=== PATIENT | female | born 1980 | race African-American/Black ===

== ENCOUNTER 2016-04-28 18:16 | Emergency (ER) | payer SELFPAY ==
[~2016-04-28 18:16] MED LIST: CHLO.12%30 SWISH-SPIT; CLIN150 PO; CLIN1CAP5 PO; DICL75 PO; IBUP800T23 PO; LISI40TA PO; MMW SWISH-SPIT; PENI250S2 PO
[2016-04-28 18:18] VITALS: BP 153/92; PULSE 80; RESP 20; TEMP 98.1; O2SAT 99
[2016-04-28] MEDS ORDERED: ONDANSETRON HCL 4 MG/2 ML VIAL IV ONE (22:45)
[2016-04-28] MEDS ORDERED: SODIUM CHLOR 0.9% 1000 ML INJ 1,000 ML IV ONE (22:45)
[2016-04-28] MEDS ORDERED: MORPHINE SULFATE 4 MG/ML INJ IV PUSH ONE (22:45)
[2016-04-28] MEDS ORDERED: LISI-515 PO (22:50)
[2016-04-28] MEDS ORDERED: ZOFR4TAB3 SL (22:50)
--- NOTE | 2016-04-28 22:50 | PD ---
HPI Chief Complaint: GI Complaint Time Seen by Provider: 22:36 Travel History International Travel<30 days: No Contact w/Intl Traveler<30days: No Traveled to known affect area: No History of Present Illness HPI The patient is a 35 year old female who presents to the [facility] emergency department with a history of lower abdominal cramping below the umbilicus and in bilateral lower quadrants of the abdomen that began this morning. She reports that it has been associated with nausea, vomiting, and diarrhea. She reports that she's had vomiting approximately 4-5 times, and diarrhea 6. She denies having any blood in her stool or black or tarry stools. She denies having any mucus in her stool. She reports that last week someone did come into work sick. She denies being on any recent antibiotics. She denies any foreign travel. She denies having any known fever. She denies having dysuria, hematuria, urinary urgency or frequency. Her last menstrual cycle was April 18. She denies any possibility of being . The patient denies any cough, congestion, neck pain, chest pain, shortness of breath, or neurologic symptoms. [facility] Past Medical History Narrative Medical The patient's past medical history is significant for hypertension. She denies taking any medication currently and she reports that she does not have insurance. The patient has degenerative disc disease of the low back. Cardiovascular Problems: Yes (HTN-NOT TAKING MEDS) Diminished Hearing: No Hepatitis: No Hypertension: Yes Medical other: Yes (ARTHRITIS LOW SPINE) Respiratory: No Immunizations Current: Yes Tetanus Vaccination: < 5 Years Influenza Vaccination: No ?: Not LMP: 04/18/16 : 9 Para: 8 Miscarriage: 1 Past Surgical History Narrative Surgical The patient's past surgical history is significant for right wrist tendon repair. Pacemaker: No Other Surgery: Yes (RIGHT WRIST LACERATION REPAIR) Social History Alcohol Use: No Tobacco Use: Yes (1/2 pack a day) Substance Use: No Allergies-Medications (Allergen,Severity, Reaction): Coded Allergies: No Known Allergies (Verified , 04/28/16) Reported Meds & Prescriptions Reported Meds & Active Scripts Active Zofran Odt (Ondansetron Odt) 4 Mg Tab 4 Mg SL Q6HR PRN Lisinopril 20 Mg Tab 20 Mg PO DAILY Review of Systems Except as stated in HPI: all other systems reviewed are Neg General / Constitutional: No: Fever Eyes: No: Visual changes HENT: No: Headaches Cardiovascular: No: Chest Pain or Discomfort Respiratory: No: Shortness of Breath Gastrointestinal: Positive: Nausea, Vomiting, Diarrhea, Abdominal Pain, Changes in Bowel Habits, Loss of Appetite, No: Hematemesis, Hematochezia, Indigestion Genitourinary: No: Dysuria Musculoskeletal: No: Pain Skin: No Rash Neurologic: No: Weakness Psychiatric: No: Depression Endocrine: No: Polydipsia Hematologic/Lymphatic: No: Easy Bruising Physical Exam Narrative General: The patient is a well-developed well-nourished female in no acute distress. Head and Neck exam: Head is normocephalic atraumatic. Eyes: EOMI, pupils are equal round and reactive to light. Nose: Midline septum with pink mucous membranes Mouth: Dentition unremarkable. Moist mucus membranes. Posterior oropharynx is not erythematous. No tonsillar hypertrophy. Uvula midline. Airway patent. Neck: No palpable lymphadenopathy. No nuchal rigidity. No thyromegaly. Cardiovascular: Regular rate and rhythm without murmurs, gallops, or rubs. Lungs: Clear to auscultation bilaterally. No wheezes, rhonchi, or rales. Abdomen: Soft, with discomfort on deep palpation of the lateral lower quadrants of the abdomen and suprapubic area. No guarding, rebound, or rigidity. No tenderness on palpation of McBurney's point. Normal bowel sounds are audible. Extremities: No clubbing, cyanosis, or edema. No calf tenderness on palpation. Back: No spinous process tenderness to palpation. Right-sided CVA tenderness on palpation. Neurologic Exam: Grossly nonfocal. Skin Exam: No rash noted. Intact skin that is warm and dry. Data Data Last Documented VS Vital Signs Date Time Temp Pulse Resp B/P Pulse Ox O2 Delivery O2 Flow Rate FiO2 04/28/16 22:34 16 04/28/16 18:18 98.1 80 153/92 99 Room Air Orders Complete Blood Count With Diff (04/28/16 22:36) Comprehensive Metabolic Panel (04/28/16 22:36) C-Reactive Protein (Crp) (04/28/16 22:36) Lipase (04/28/16 22:36) Urinalysis - C+S If Indicated (04/28/16 22:36) Iv Access Insert/Monitor (04/28/16 22:36) Ecg Monitoring (04/28/16 22:36) Oximetry (04/28/16 22:36) Ed Urine Pregnancytest Poc (04/28/16 22:36) Sodium Chlor 0.9% 1000 Ml Inj (Ns 1000 M (04/28/16 22:45) Ondansetron Inj (Zofran Inj) (04/28/16 22:45) Morphine Inj (Morphine Inj) (04/28/16 22:45) Blood Glucose (04/28/16 23:50) Oral Rehydration (04/28/16 23:50) Sodium Chlorid 0.9% 500 Ml Inj (Ns 500 M (04/29/16 00:00) Labs Laboratory Tests Test 04/28/16 04/28/16 08:20 22:42 Sodium Level 139 MEQ/L Potassium Level 4.0 MEQ/L Chloride Level 106 MEQ/L Carbon Dioxide Level 25.4 MEQ/L Anion Gap 8 MEQ/L Blood Urea Nitrogen 12 MG/DL Creatinine 0.77 MG/DL Estimat Glomerular Filtration 102 ML/MIN Rate Random Glucose 69 MG/DL Calcium Level 8.9 MG/DL Total Bilirubin 0.4 MG/DL Aspartate Amino Transf 13 U/L (AST/SGOT) Alanine Aminotransferase 19 U/L (ALT/SGPT) Alkaline Phosphatase 95 U/L C-Reactive Protein LESS THAN 0.29 MG/DL Total Protein 7.1 GM/DL Albumin 4.2 GM/DL Lipase 101 U/L White Blood Count 6.6 TH/MM3 Red Blood Count 4.63 MIL/MM3 Hemoglobin 14.7 GM/DL Hematocrit 43.2 % Mean Corpuscular Volume 93.3 FL Mean Corpuscular Hemoglobin 31.7 PG Mean Corpuscular Hemoglobin 34.0 % Concent Red Cell Distribution Width 14.1 % Platelet Count 276 TH/MM3 Mean Platelet Volume 8.5 FL Neutrophils (%) (Auto) 49.4 % Lymphocytes (%) (Auto) 39.8 % Monocytes (%) (Auto) 7.8 % Eosinophils (%) (Auto) 2.3 % Basophils (%) (Auto) 0.7 % Neutrophils # (Auto) 3.3 TH/MM3 Lymphocytes # (Auto) 2.6 TH/MM3 Monocytes # (Auto) 0.5 TH/MM3 Eosinophils # (Auto) 0.2 TH/MM3 Basophils # (Auto) 0.0 TH/MM3 CBC Comment DIFF FINAL Differential Comment Urine Color YELLOW Urine Turbidity HAZY Urine pH 6.5 Urine Specific [place] 1.019 Urine Protein NEG mg/dL Urine Glucose (UA) NEG mg/dL Urine Ketones NEG mg/dL Urine Occult Blood NEG Urine Nitrite NEG Urine Bilirubin NEG Urine Urobilinogen 2.0 MG/DL Urine Leukocyte Esterase NEG Urine RBC LESS THAN 1 /hpf Urine WBC LESS THAN 1 /hpf Urine Squamous Epithelial 3 /hpf Cells Urine Mucus FEW /lpf Microscopic Urinalysis Comment CULT NOT INDICATED MDM Medical Decision Making Medical Screen Exam Complete: Yes Emergency Medical Condition: Yes Medical Record Reviewed: Yes Differential Diagnosis Viral versus bacterial gastroenteritis, versus dehydration, versus electrolyte derangements, versus pyelonephritis, versus musculoskeletal strain, versus cystitis, versus Narrative Course During the course of the patients emergency department visit, the patients history, examination, and differential diagnosis were reviewed with the patient. The patient had IV access obtained and blood work sent for analysis. The patient states on a cream maker with oximetry and blood pressure monitoring. The patient was provided normal saline 1 L IV fluid bolus, Zofran 4 mg IV. The patient was started on oral rehydration therapy. Bedside test was negative. The patients laboratory studies were reviewed and remarkable for CBC is within normal limits. CMP is remarkable for a glucose of 69, AST 13, lipase 101, C- reactive protein is unremarkable. Urinalysis is unremarkable. The patient will have an Accu-Chek repeated. The patient will be started on oral rehydration therapy. The patient's symptoms are most consistent with a viral gastroenteritis. The patient will be discharged home with a prescription for Zofran and instructed to push fluids with an electrolyte rich solution such as Gatorade or Pedialyte. The patient was also given a prescription for lisinopril as she reports that she has a history of high blood pressure and has not been able to get medication. The patient was instructed to follow-up with the [facility] and patient assistance for primary care. The patient is resting comfortably and feels better, is alert and in no distress. The patients results and examination findings were discussed with the patient. The repeat examination is unremarkable and benign. The history, exam, diagnostic testing, and current condition do not suggest any significant pathology to warrant further testing, continued ED treatment, admission, or surgical evaluation at this point. The vital signs have been stable. The patient does not have uncontrollable pain, intractable vomiting, or other significant symptoms. The patient's condition is stable and appropriate for discharge. The patient will pursue further outpatient evaluation with a primary care physician or other designated or consulting physician as indicated in the discharge instructions. The patient expressed understanding and was agreeable with this plan. Diagnosis Primary Impression: Nausea vomiting and diarrhea Additional Impression: Hypertension Qualified Code: I10 - Essential hypertension Referrals: [facility] Patient Assistance [facility] Patient Instructions: Acute Diarrhea (ED), Acute Nausea and Vomiting (ED), Chronic Hypertension (ED), General Instructions Med/Other Pt SpecificInfo: Prescription(s) given Scripts Ondansetron Odt (Zofran Odt)4 Mg Tab4 Mg SL Q6HR PRN (Nausea/Vomiting) #7 TAB Ref 0 Prov:Qi Biswas MD 04/28/16 Lisinopril 20 Mg Tab20 Mg PO DAILY #30 TAB Ref 0 Prov:Qi Biswas MD 04/28/16 Disposition: 01 DISCHARGE HOME Condition: Stable Qi Biswas MD Apr 28, 2016 22:50
[2016-04-28 22:55] LABS: AUTOMATED NEUTROPHIL # 3.3 TH/MM3 (1.8-7.7); BASOPHIL % 0.7 % (0.0-2.0); EOSINOPHIL # 0.2 TH/MM3 (0-0.4); EOSINOPHIL % 2.3 % (0.0-4.0); HEMATOCRIT 43.2 % (35.0-46.0); HEMO FLAGS DIFF FINAL; LYMPH % 39.8 % (9.0-44.0); LYMPHOCYTE # 2.6 TH/MM3 (1.0-4.8); MEAN CELL VOLUME 93.3 FL (80.0-100.0); MEAN CORPUSCULAR HEMOGLOBIN 31.7 PG (27.0-34.0); MONO % 7.8 % (0.0-8.0); NEUT % 49.4 % (16.0-70.0); PLATELET COUNT 276 TH/MM3 (150-450); RED BLOOD COUNT 4.63 MIL/MM3 (4.00-5.30); RED CELL DISTRIBUTION WIDTH 14.1 % (11.6-17.2); WHITE BLOOD COUNT 6.6 TH/MM3 (4.0-11.0)
[2016-04-28 23:09] LABS: BLOOD, URINE NEG (NEG); COMMENT (UR) CULT NOT INDICATED; CULTURE IF INDICATED CULT NOT INDICATED; GLUCOSE,URINE NEG (NEG); KETONE, URINE NEG (NEG); MUCUS URINE FEW /lpf (OCC); NITRITE,URINE NEG (NEG); PH, URINE 6.5 (5.0-8.5); SQUAMOUS EPITHELIAL CELL URINE 3 /hpf (0-5); URINE COLOR YELLOW (YELLW/STRAW)
[2016-04-28 23:16] LABS: ALT (GPT) 19 U/L (10-53); AST (GOT) 13 U/L (15-37); BICARBONATE 25.4 MEQ/L (21.0-32.0); BLOOD UREA NITROGEN 12 MG/DL (7-18); CHLORIDE 106 MEQ/L (98-107); GLOMERULAR FILTRATION RATE 102 ML/MIN (>89); SODIUM (NA) 139 MEQ/L (136-145)
[2016-04-28 23:17] LABS: ANION GAP 8 MEQ/L (5-15)
[2016-04-28 23:19] LABS: ALKALINE PHOSPHATASE 95 U/L (45-117); TOTAL BILIRUBIN ADULT 0.4 MG/DL (0.2-1.0)
[2016-04-29] MEDS ORDERED: SODIUM CHLORID 0.9% 500 ML INJ 500 ML IV ONE
[2016-04-29 00:31] VITALS: RESP 18; O2SAT 100
== END 2016-04-29 01:52 | disposition home or self-care (01) ==
LOC: NEPC 18:16
DX: R11.2 Nausea with vomiting, unspecified (principal); R19.7 Diarrhea, unspecified; I10 Essential (primary) hypertension; F17.210 Nicotine dependence, cigarettes, uncomplicated
CPT/HCPCS: 80053; 81001; 83690; 84703; 85025; 86140; 96374; 96375; 99284; J2270; J2405; J7030; J7040

== ENCOUNTER 2016-08-02 15:12 | Emergency (ER) | payer SELFPAY ==
[~2016-08-02] VITALS: Ht 165.1 cm; Wt 80.0 kg
[~2016-08-02 15:12] MED LIST changes: -CHLO.12%30 SWISH-SPIT; -CLIN150 PO; -CLIN1CAP5 PO; -DICL75 PO; -IBUP800T23 PO; +LISI-515 PO; -LISI40TA PO; -MMW SWISH-SPIT; -PENI250S2 PO; +ZOFR4TAB3 SL
[2016-08-02 15:14] VITALS: BP 133/85; PULSE 84; RESP 16; TEMP 98.1; O2SAT 98
--- NOTE | 2016-08-02 15:27 | PD ---
HPI . chest pain and high blood pressure Chief Complaint: Chest Pain Time Seen by Provider: 15:21 Travel History International Travel<30 days: No Contact w/Intl Traveler<30days: No Traveled to known affect area: No History of Present Illness HPI 35-year-old female with history of high blood pressure here with complaints of chest pressure that started last night and has been constant ever since. Patient is located in the substernal area without any further radiation. She rates the pain as mild-moderate. She tells me that her blood pressure has been high and she was given lisinopril 20 mg here in the emergency department, but that she would need lisinopril 40 mg. She also reports some nausea, but denies any diaphoresis or shortness of breath. She was last seen here in April 2016 and given lisinopril, and told to follow-up with her primary care provider/ [facility] or Patient's assistance. She tells me she does not have a primary care provider and uses the emergency room for her medical needs. She has no other complaints. PFSH Past Medical History Cardiovascular Problems: Yes (HTN-NOT TAKING MEDS) Diminished Hearing: No Hepatitis: No Hypertension: Yes Respiratory: No Immunizations Current: Yes ?: Not LMP: 07/26/16 : 9 Para: 8 Miscarriage: 1 Past Surgical History Pacemaker: No Other Surgery: Yes (RIGHT WRIST LACERATION REPAIR) Social History Alcohol Use: No Tobacco Use: Yes (1/2 pack a day) Substance Use: No Allergies-Medications (Allergen,Severity, Reaction): Coded Allergies: No Known Allergies (Verified , 08/02/16) Reported Meds & Prescriptions Reported Meds & Active Scripts Active Zofran Odt (Ondansetron Odt) 4 Mg Tab 4 Mg SL Q8HR PRN Lisinopril 20 Mg Tab 20 Mg PO DAILY Lisinopril 20 Mg Tab 20 Mg PO DAILY Review of Systems General / Constitutional: No: Fever Eyes: No: Visual changes HENT: No: Headaches Cardiovascular: Positive: Chest Pain or Discomfort Respiratory: No: Shortness of Breath Gastrointestinal: Positive: Nausea, No: Abdominal Pain Genitourinary: No: Dysuria Musculoskeletal: No: Pain Skin: No Rash Neurologic: No: Weakness Psychiatric: No: Depression Endocrine: No: Polydipsia Hematologic/Lymphatic: No: Easy Bruising Physical Exam Narrative GENERAL: AAO x 3, no acute distress, Well-nourished, well-developed patient. SKIN: Warm and dry. No visible rashes or bruising. HEAD: Normocephalic and atraumatic. EYES: No scleral icterus. No injection or drainage. EOM intact, PERRLA ENT: No nasal drainage noted. Mucous membranes pink. Airway patent. Moist mucous membrane. NECK: Supple, trachea midline. No JVD. No lymphadenopathy. CARDIOVASCULAR: Regular rate and rhythm without murmurs, gallops, or rubs. Reproducible pain in the sternum. RESPIRATORY: Breath sounds equal bilaterally. No accessory muscle use. No rhonchi or rales. GASTROINTESTINAL: Abdomen soft, non-tender, nondistended. EXTREMITIES: No cyanosis or edema. BACK: Nontender without obvious deformity. No CVA tenderness. 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 Data Data Last Documented VS Vital Signs Date Time Temp Pulse Resp B/P Pulse Ox O2 Delivery O2 Flow Rate FiO2 08/02/16 15:29 79 18 132/87 98 Room Air 134/91 08/02/16 15:14 98.1 Orders Electrocardiogram (08/02/16 15:27) Basic Metabolic Panel (Bmp) (08/02/16 15:27) Ckmb (Isoenzyme) Profile (08/02/16 15:27) Complete Blood Count With Diff (08/02/16 15:27) Magnesium (Mg) (08/02/16 15:27) Prothrombin Time / Inr (Pt) (08/02/16 15:27) Act Partial Throm Time (Ptt) (08/02/16 15:27) Troponin I (08/02/16 15:27) Chest, Single Ap (08/02/16 15:27) Ecg Monitoring (08/02/16 15:27) Bilateral Bp Monitoring (08/02/16 15:27) Iv Access Insert/Monitor (08/02/16 15:27) Oximetry (08/02/16 15:27) Oxygen Administration (08/02/16 15:27) Sodium Chloride 0.9% Flush (Ns Flush) (08/02/16 15:30) Ed Urine Pregnancytest Poc (08/02/16 15:27) Ondansetron Inj (Zofran Inj) (08/02/16 16:45) CKMB (08/02/16 15:40) CKMB% (08/02/16 15:40) Labs Laboratory Tests Test 08/02/16 15:40 White Blood Count 5.7 TH/MM3 Red Blood Count 4.32 MIL/MM3 Hemoglobin 13.9 GM/DL Hematocrit 40.5 % Mean Corpuscular Volume 93.8 FL Mean Corpuscular Hemoglobin 32.2 PG Mean Corpuscular Hemoglobin 34.3 % Concent Red Cell Distribution Width 14.0 % Platelet Count 250 TH/MM3 Mean Platelet Volume 8.3 FL Neutrophils (%) (Auto) 51.0 % Lymphocytes (%) (Auto) 35.4 % Monocytes (%) (Auto) 9.8 % Eosinophils (%) (Auto) 3.3 % Basophils (%) (Auto) 0.5 % Neutrophils # (Auto) 2.9 TH/MM3 Lymphocytes # (Auto) 2.0 TH/MM3 Monocytes # (Auto) 0.6 TH/MM3 Eosinophils # (Auto) 0.2 TH/MM3 Basophils # (Auto) 0.0 TH/MM3 CBC Comment DIFF FINAL Differential Comment Prothrombin Time 10.4 SEC Prothromb Time International 0.9 RATIO Ratio Activated Partial 25.2 SEC Thromboplast Time Sodium Level 140 MEQ/L Potassium Level 4.1 MEQ/L Chloride Level 109 MEQ/L Carbon Dioxide Level 22.4 MEQ/L Anion Gap 9 MEQ/L Blood Urea Nitrogen 16 MG/DL Creatinine 0.77 MG/DL Estimat Glomerular Filtration 102 ML/MIN Rate Random Glucose 77 MG/DL Calcium Level 8.6 MG/DL Magnesium Level 2.2 MG/DL Total Creatine Kinase 184 U/L Creatine Kinase MB 1.2 NG/ML Troponin I LESS THAN 0.02 NG/ML MDM Medical Decision Making Medical Screen Exam Complete: Yes Emergency Medical Condition: Yes Medical Record Reviewed: Yes Differential Diagnosis Hypertension, angina, less likely ACS, atypical chest pain, anxiety Narrative Course 35-year-old female here with complaints of chest pain that started yesterday while at work. The pain has been constant ever since. IV access was obtained, labs and chest x-ray have been ordered. EKG was unremarkable. She was given zofran for her nausea. Last Impressions Chest X-Ray 08/02/16 0757 Signed Impressions: Service Date/Time: Thursday, August 02, 2016 15:48 - CONCLUSION: No acute disease. Demian Cody MD Chest x-ray unremarkable. Laboratory Tests Test 08/02/16 15:40 White Blood Count 5.7 TH/MM3 Red Blood Count 4.32 MIL/MM3 Hemoglobin 13.9 GM/DL Hematocrit 40.5 % Mean Corpuscular Volume 93.8 FL Mean Corpuscular Hemoglobin 32.2 PG Mean Corpuscular Hemoglobin 34.3 % Concent Red Cell Distribution Width 14.0 % Platelet Count 250 TH/MM3 Mean Platelet Volume 8.3 FL Neutrophils (%) (Auto) 51.0 % Lymphocytes (%) (Auto) 35.4 % Monocytes (%) (Auto) 9.8 % Eosinophils (%) (Auto) 3.3 % Basophils (%) (Auto) 0.5 % Neutrophils # (Auto) 2.9 TH/MM3 Lymphocytes # (Auto) 2.0 TH/MM3 Monocytes # (Auto) 0.6 TH/MM3 Eosinophils # (Auto) 0.2 TH/MM3 Basophils # (Auto) 0.0 TH/MM3 CBC Comment DIFF FINAL Differential Comment Prothrombin Time 10.4 SEC Prothromb Time International 0.9 RATIO Ratio Activated Partial 25.2 SEC Thromboplast Time Sodium Level 140 MEQ/L Potassium Level 4.1 MEQ/L Chloride Level 109 MEQ/L Carbon Dioxide Level 22.4 MEQ/L Anion Gap 9 MEQ/L Blood Urea Nitrogen 16 MG/DL Creatinine 0.77 MG/DL Estimat Glomerular Filtration 102 ML/MIN Rate Random Glucose 77 MG/DL Calcium Level 8.6 MG/DL Magnesium Level 2.2 MG/DL Total Creatine Kinase 184 U/L Creatine Kinase MB 1.2 NG/ML Troponin I LESS THAN 0.02 NG/ML Labs reviewed and are fairly unremarkable. I have discussed all the normal result findings with the patient and explained to her that I do not believe she is having any acute coronary syndrome. Patient is in agreement. Her symptoms have improved with the zofran and she is feeling better. I provide her with 15 additional days worth of lisinopril and explained to her that she will need to establish without an outpatient primary care provider for further refills and treatment of her hypertension. I've also provide her with some Zofran for nausea. Patient verbalized understanding of instructions, questions were answered, and thanked me for their care. I advised them if their condition worsens, please return to the nearest emergency room for further care. Diagnosis Primary Impression: Atypical chest pain Patient Instructions: General Instructions Departure Forms: Tests/Procedures, Work Release Enter return to work date: Aug 03, 2016 Additional Instructions: Please return to emergency department if your symptoms return or worsen. Follow up with your primary care provider. Take medications as prescribed. Try to establish with a primary care provider for further medication refills and care regarding your blood pressure. Med/Other Pt SpecificInfo: Prescription(s) given Scripts Ondansetron Odt (Zofran Odt)4 Mg Tab4 Mg SL Q8HR PRN (Nausea/Vomiting) #15 TAB Ref 0 Prov:Silvana Sloan DO 08/02/16 Lisinopril 20 Mg Tab20 Mg PO DAILY #15 TAB Ref 0 Prov:Silvana Sloan DO 08/02/16 Disposition: 01 DISCHARGE HOME Condition: Stable Rafaela Calvin Aug 02, 2016 15:27
[2016-08-02 15:29] VITALS: BP_SYST 132; BP_SYST 134; BP_DIAS 87; BP_DIAS 91; PULSE 79; RESP 18; O2SAT 98
[2016-08-02] MEDS ORDERED: SODIUM CHLORIDE 0.9% FLUSH 10 ML FLUSH IVF PRN (15:30)
[2016-08-02 16:09] LABS: AUTOMATED NEUTROPHIL # 2.9 TH/MM3 (1.8-7.7); BASOPHIL % 0.5 % (0.0-2.0); EOSINOPHIL # 0.2 TH/MM3 (0-0.4); EOSINOPHIL % 3.3 % (0.0-4.0); HEMATOCRIT 40.5 % (35.0-46.0); HEMO FLAGS DIFF FINAL; LYMPH % 35.4 % (9.0-44.0); MEAN CELL VOLUME 93.8 FL (80.0-100.0); MEAN CORPUSCULAR HEMOGLOBIN 32.2 PG (27.0-34.0); MEAN CORPUSCULAR HGB CONC 34.3 % (32.0-36.0); MONO % 9.8 % (0.0-8.0); PLATELET COUNT 250 TH/MM3 (150-450); RED BLOOD COUNT 4.32 MIL/MM3 (4.00-5.30); WHITE BLOOD COUNT 5.7 TH/MM3 (4.0-11.0)
[2016-08-02 16:18] LABS: APTT (PATIENT) 25.2 SEC (24.3-30.1); INTERNATIONAL NORMALIZED RATIO 0.9 RATIO; PROTHROMBIN TIME - PATIENT 10.4 SEC (9.8-11.6)
--- NOTE | 2016-08-02 16:20 | RADRPT ---
EXAM DATE/TIME: 08/02/2016 15:48 [facility] COMPARISON: No previous studies available for comparison. INDICATIONS : Chest pain. MEDICAL HISTORY : None. SURGICAL HISTORY : None. ENCOUNTER: Initial ACUITY: 1 day PAIN SCORE: 5/10 LOCATION: Left chest FINDINGS: A single view of the chest demonstrates the lungs to be symmetrically aerated without evidence of mas s, infiltrate or effusion. The cardiomediastinal contours are unremarkable. Osseous structures are intact. CONCLUSION: No acute disease. Demian Cody MD on August 02, 2016 at 16:17 Board Certified Radiologist. This report was verified electronically.
[2016-08-02 16:35] LABS: ANION GAP 9 MEQ/L (5-15); BICARBONATE 22.4 MEQ/L (21.0-32.0); BLOOD UREA NITROGEN 16 MG/DL (7-18); CHLORIDE 109 MEQ/L (98-107); GLOMERULAR FILTRATION RATE 102 ML/MIN (>89); MAGNESIUM 2.2 MG/DL (1.5-2.5); POTASSIUM 4.1 MEQ/L (3.5-5.1); SODIUM (NA) 140 MEQ/L (136-145)
[2016-08-02 16:39] LABS: CREATINE KINASE 184 U/L (26-192)
[2016-08-02] MEDS ORDERED: LISI-515 PO (16:43)
[2016-08-02] MEDS ORDERED: ZOFR4TAB3 SL (16:43)
[2016-08-02] MEDS ORDERED: ONDANSETRON HCL 4 MG/2 ML VIAL IV PUSH ONE (16:45)
[2016-08-02 16:51] LABS: CKMB 1.2 NG/ML (0.5-3.6)
[2016-08-02 17:33] VITALS: BP 134/91
--- NOTE | 2016-08-03 11:46 | EKG ---
Date Performed: 08/02/2016 Time Performed: 15:35:03 PTAGE: 35 years EKG: Sinus rhythm NORMAL ECG NO PREVIOUS TRACING DOCTOR: Reuben Lees Interpretating Date/Time 08/03/2016 11:45:10
== END 2016-08-02 17:46 | disposition home or self-care (01) ==
LOC: NEPC 15:12
DX: R07.89 Other chest pain (principal); R11.0 Nausea; I10 Essential (primary) hypertension; F17.200 Nicotine dependence, unspecified, uncomplicated; Z79.899 Other long term (current) drug therapy
CPT/HCPCS: 71010; 80048; 82550; 82552; 83735; 84484; 84703; 85025; 85610; 85730; 93005; 96374; 99285; J2405

== ENCOUNTER 2016-09-16 03:35 | Emergency (ER) | payer SELFPAY ==
[~2016-09-16] VITALS: Ht 165.1 cm; Wt 90.0 kg
[2016-09-16 03:37] VITALS: BP 157/89; PULSE 106; RESP 18; TEMP 98.8; O2SAT 96
[2016-09-16 04:17] VITALS: BP 158/88; PULSE 105; RESP 20; O2SAT 98
--- NOTE | 2016-09-16 04:45 | PD ---
HPI Chief Complaint: Abdominal Pain Time Seen by Provider: 04:12 Travel History International Travel<30 days: No Contact w/Intl Traveler<30days: No Traveled to known affect area: No History of Present Illness HPI The patient is a 36 year old female who presents to the [facility] emergency department with a history of abdominal pain that began yesterday. It involves the entire abdomen. It is constant. It is a stabbing and aching sensation. She has nausea without vomiting associated with this. Her last bowel movement was today. The pain is worse at the bottom of her abdomen. She denies ever having a pain like this previously. On review of systems, she denies any recent fevers, cough, congestion, neck pain, chest pain, shortness of breath, urinary symptoms, or neurologic symptoms. LMP: She is currently at the end of her cycle. [facility] Past Medical History Narrative Medical The Patient's past medical history is significant for hypertension, degenerative disc disease and chronic back pain, Cardiovascular Problems: Yes (HTN-NOT TAKING MEDS) Diminished Hearing: No Hepatitis: No Hypertension: Yes Respiratory: No Immunizations Current: Yes Tetanus Vaccination: < 5 Years Influenza Vaccination: No ?: Not LMP: NOW : 9 Para: 8 Miscarriage: 1 Past Surgical History Narrative Surgical The patient's past surgical history is significant for wrist sx on the right. Pacemaker: No Other Surgery: Yes (RIGHT WRIST LACERATION REPAIR) Social History Alcohol Use: No Tobacco Use: Yes (1/2 pack a day) Substance Use: No Allergies-Medications (Allergen,Severity, Reaction): Coded Allergies: No Known Allergies (Verified , 09/16/16) Reported Meds & Prescriptions Reported Meds & Active Scripts Active No Active Prescriptions or Reported Medications Review of Systems Except as stated in HPI: all other systems reviewed are Neg General / Constitutional: No: Fever Eyes: No: Visual changes HENT: No: Headaches Cardiovascular: No: Chest Pain or Discomfort Respiratory: No: Shortness of Breath Gastrointestinal: Positive: Nausea, Abdominal Pain, No: Vomiting, Diarrhea Genitourinary: No: Dysuria Musculoskeletal: No: Pain Skin: No Rash Neurologic: No: Weakness Psychiatric: No: Depression Endocrine: No: Polydipsia Hematologic/Lymphatic: No: Easy Bruising Physical Exam Narrative General: The patient is a well-developed well-nourished female in no acute distress. Head and Neck exam: Head is normocephalic atraumatic. Eyes: EOMI, pupils are equal round and reactive to light. Nose: Midline septum with pink mucous membranes Mouth: Dentition unremarkable. Moist mucus membranes. Posterior oropharynx is not erythematous. No tonsillar hypertrophy. Uvula midline. Airway patent. Neck: No palpable lymphadenopathy. No nuchal rigidity. No thyromegaly. Cardiovascular: Regular rate and rhythm without murmurs, gallops, or rubs. Lungs: Clear to auscultation bilaterally. No wheezes, rhonchi, or rales. Abdomen: Soft, with with reported pain on palpation of all quadrants of the abdomen. Normal bowel sounds are audible. No guarding, rebound, or rigidity. Negative Shevlin sign. No tenderness on palpation of McBurney's point Extremities: No clubbing, cyanosis, or edema. 2+ pulses in all 4 extremities. Back: No spinous process tenderness to palpation. No CVA tenderness on palpation. Neurologic Exam: Grossly nonfocal. Skin Exam: No rash noted. Intact skin that is warm and dry. A well-developed well-nourished female in no acute distress. Data Data Last Documented VS Vital Signs Date Time Temp Pulse Resp B/P Pulse Ox O2 Delivery O2 Flow Rate FiO2 09/16/16 06:06 104 20 128/75 100 Room Air 09/16/16 03:37 98.8 Orders Complete Blood Count With Diff (09/16/16 04:38) Comprehensive Metabolic Panel (09/16/16 04:38) C-Reactive Protein (Crp) (09/16/16 04:38) Lipase (09/16/16 04:38) Urinalysis - C+S If Indicated (09/16/16 04:38) Westergren Sedimentation Rate (09/16/16 04:38) Iv Access Insert/Monitor (09/16/16 04:38) Ecg Monitoring (09/16/16 04:38) Oximetry (09/16/16 04:38) Ed Urine Pregnancytest Poc (09/16/16 04:38) Sodium Chlorid 0.9% 500 Ml Inj (Ns 500 M (09/16/16 05:15) Ketorolac Inj (Toradol Inj) (09/16/16 05:15) Ondansetron Inj (Zofran Inj) (09/16/16 05:15) Ct Abd/Pel W Iv Contrast(Rout) (09/16/16 05:56) Morphine Inj (Morphine Inj) (09/16/16 06:00) Iohexol 350 Inj (Omnipaque 350 Inj) (09/16/16 06:38) Labs Laboratory Tests Test 09/16/16 09/16/16 04:20 04:50 White Blood Count 11.6 TH/MM3 Red Blood Count 4.39 MIL/MM3 Hemoglobin 13.8 GM/DL Hematocrit 41.9 % Mean Corpuscular Volume 95.6 FL Mean Corpuscular Hemoglobin 31.5 PG Mean Corpuscular Hemoglobin 32.9 % Concent Red Cell Distribution Width 13.7 % Platelet Count 235 TH/MM3 Mean Platelet Volume 8.1 FL Neutrophils (%) (Auto) 86.2 % Lymphocytes (%) (Auto) 9.7 % Monocytes (%) (Auto) 3.1 % Eosinophils (%) (Auto) 0.9 % Basophils (%) (Auto) 0.1 % Neutrophils # (Auto) 10.0 TH/MM3 Lymphocytes # (Auto) 1.1 TH/MM3 Monocytes # (Auto) 0.4 TH/MM3 Eosinophils # (Auto) 0.1 TH/MM3 Basophils # (Auto) 0.0 TH/MM3 CBC Comment DIFF FINAL Differential Comment Erythrocyte Sedimentation Rate 1 mm/hr Sodium Level 140 MEQ/L Potassium Level 3.5 MEQ/L Chloride Level 106 MEQ/L Carbon Dioxide Level 27.9 MEQ/L Anion Gap 6 MEQ/L Blood Urea Nitrogen 11 MG/DL Creatinine 1.04 MG/DL Estimat Glomerular Filtration 72 ML/MIN Rate Random Glucose 121 MG/DL Calcium Level 8.8 MG/DL Total Bilirubin 0.5 MG/DL Aspartate Amino Transf 11 U/L (AST/SGOT) Alanine Aminotransferase 18 U/L (ALT/SGPT) Alkaline Phosphatase 119 U/L C-Reactive Protein 2.59 MG/DL Total Protein 7.0 GM/DL Albumin 3.7 GM/DL Lipase 121 U/L Urine Color LIGHT-YELLOW Urine Turbidity CLEAR Urine pH 6.5 Urine Specific [place] 1.014 Urine Protein NEG mg/dL Urine Glucose (UA) NEG mg/dL Urine Ketones NEG mg/dL Urine Occult Blood TRACE Urine Nitrite NEG Urine Bilirubin NEG Urine Urobilinogen LESS THAN 2.0 MG/DL Urine Leukocyte Esterase TRACE Urine RBC LESS THAN 1 /hpf Urine WBC 1 /hpf Urine Squamous Epithelial <1 /hpf Cells Urine Bacteria RARE /hpf Urine Mucus FEW /lpf Microscopic Urinalysis Comment CULT NOT INDICATED MDM Medical Decision Making Medical Screen Exam Complete: Yes Emergency Medical Condition: Yes Medical Record Reviewed: Yes Interpretation(s) Last Impressions Abdomen/Pelvis CT 09/16/16 0556 Signed Impressions: Service Date/Time: Friday, September 16, 2016 06:34 - CONCLUSION: Normal examination. Otoniel Valero MD Differential Diagnosis Colonic spasm, versus biliary colic, versus acute pancreatitis, versus diverticulitis, versus colitis, versus pyelonephritis, versus kidney stone Narrative Course During the course of the patients emergency department visit, the patients history, examination, and differential diagnosis were reviewed with the patient. The patient had IV access obtained and blood work sent for analysis. The patient was placed on a cardiac cath lab technologist with oximetry and blood pressure monitoring. A CT scan of the abdomen and pelvis was ordered. The patient was initially provided Toradol 15 mg IV for pain, Zofran 4 mg IV for nausea. The patient had continued pain and was given morphine 4 mg IV. The patient was given normal saline a 500 mL bolus times one. The patients laboratory studies were reviewed and remarkable for a white count of 11.6, hemoglobin 13.8, platelets 235 with neutrophils 86.2. Sedimentation rate is 1. CMP is remarkable for a creatinine of 1.04, glucose 121, AST 11, alkaline phosphatase 119, C-reactive protein 2.59, lipase 121. urinalysis shows trace occult blood, trace leukocyte esterase, rare bacteria. Radiology studies were reviewed and remarkable for a CT scan of the abdomen and pelvis that showed no acute abnormality., Normal examination is read by the reading radiologist. The patient will be discharged home with a prescription for Bentyl and Zofran for nausea. The patient is instructed regarding the importance of close follow- up with a primary care physician for reexamination in the next 2 days. The patient is resting comfortably and feels better, is alert and in no distress. The patients results and examination findings were discussed with the patient. The repeat examination is unremarkable and benign. The history, exam, diagnostic testing, and current condition do not suggest any significant pathology to warrant further testing, continued ED treatment, admission, or surgical evaluation at this point. The vital signs have been stable. The patient does not have uncontrollable pain, intractable vomiting, or other significant symptoms. The patient's condition is stable and appropriate for discharge. The patient will pursue further outpatient evaluation with a primary care physician or other designated or consulting physician as indicated in the discharge instructions. The patient expressed understanding and was agreeable with this plan. Diagnosis Primary Impression: Abdominal pain Qualified Code: R10.84 - Generalized abdominal pain Referrals: [facility] 2 days [facility] Patient Assistance Program Patient Instructions: Abdominal Pain (ED), General Instructions Med/Other Pt SpecificInfo: Prescription(s) given Scripts Ondansetron Odt (Zofran Odt)4 Mg Tab4 Mg SL Q6HR PRN (Nausea/Vomiting) #7 TAB Ref 0 Prov:Qi Biswas MD 09/16/16 Dicyclomine (Bentyl)10 Mg Cap10 Mg PO QID PRN (abdominal pain) #12 CAP Ref 0 Prov:Qi Biswas MD 09/16/16 Disposition: 01 DISCHARGE HOME Condition: Stable Qi Biswas MD Sep 16, 2016 04:45
[2016-09-16 04:46] VITALS: BP 158/88; PULSE 98; RESP 20; O2SAT 98
[2016-09-16 05:10] LABS: BASOPHIL % 0.1 % (0.0-2.0); EOSINOPHIL # 0.1 TH/MM3 (0-0.4); EOSINOPHIL % 0.9 % (0.0-4.0); HEMATOCRIT 41.9 % (35.0-46.0); HEMO FLAGS DIFF FINAL; LYMPH % 9.7 % (9.0-44.0); LYMPHOCYTE # 1.1 TH/MM3 (1.0-4.8); MEAN CELL VOLUME 95.6 FL (80.0-100.0); MEAN CORPUSCULAR HEMOGLOBIN 31.5 PG (27.0-34.0); MEAN CORPUSCULAR HGB CONC 32.9 % (32.0-36.0); MONO % 3.1 % (0.0-8.0); NEUT % 86.2 % (16.0-70.0); PLATELET COUNT 235 TH/MM3 (150-450); RED BLOOD COUNT 4.39 MIL/MM3 (4.00-5.30); RED CELL DISTRIBUTION WIDTH 13.7 % (11.6-17.2); WHITE BLOOD COUNT 11.6 TH/MM3 (4.0-11.0)
[2016-09-16] MEDS ORDERED: KETOROLAC TROMETHAMINE 30 MG/ML (IVP) VIAL IV PUSH ONE (05:15)
[2016-09-16] MEDS ORDERED: SODIUM CHLORID 0.9% 500 ML INJ 500 ML IV ONE (05:15)
[2016-09-16] MEDS ORDERED: ONDANSETRON HCL 4 MG/2 ML VIAL IV PUSH ONE (05:15)
[2016-09-16 05:17] LABS: BACTERIA, URINE RARE /hpf; BLOOD, URINE TRACE (NEG); COMMENT (UR) CULT NOT INDICATED; CULTURE IF INDICATED CULT NOT INDICATED; GLUCOSE,URINE NEG (NEG); KETONE, URINE NEG (NEG); MUCUS URINE FEW /lpf (OCC); NITRITE,URINE NEG (NEG); PH, URINE 6.5 (5.0-8.5); SQUAMOUS EPITHELIAL CELL URINE <1 /hpf (0-5); URINE COLOR LIGHT-YELLOW (YELLW/STRAW)
[2016-09-16 05:37] LABS: ALT (GPT) 18 U/L (10-53); ANION GAP 6 MEQ/L (5-15); AST (GOT) 11 U/L (15-37); BICARBONATE 27.9 MEQ/L (21.0-32.0); BLOOD UREA NITROGEN 11 MG/DL (7-18); CHLORIDE 106 MEQ/L (98-107); GLOMERULAR FILTRATION RATE 72 ML/MIN (>89); POTASSIUM 3.5 MEQ/L (3.5-5.1); SODIUM (NA) 140 MEQ/L (136-145)
[2016-09-16 05:39] LABS: ALKALINE PHOSPHATASE 119 U/L (45-117); TOTAL BILIRUBIN ADULT 0.5 MG/DL (0.2-1.0)
[2016-09-16] MEDS ORDERED: MORPHINE SULFATE 4 MG/ML INJ IV PUSH ONE (06:00)
[2016-09-16 06:06] VITALS: BP 128/75; PULSE 104; RESP 20; O2SAT 100
[2016-09-16] MEDS ORDERED: IOHEXOL 350 MG/ML 10 ML VIAL (for RAD DIAG) IV ONE (06:38)
--- NOTE | 2016-09-16 06:50 | RADRPT ---
EXAM DATE/TIME: 09/16/2016 06:34 [place] COMPARISON: No previous studies available for comparison. INDICATIONS : Diffuse abdominal pain. IV CONTRAST: 90 cc Omnipaque 350 (iohexol) IV ORAL CONTRAST: No oral contrast ingested. RADIATION DOSE: 12.19 CTDIvol (mGy) MEDICAL HISTORY : Hypertension. SURGICAL HISTORY : None. ENCOUNTER: Initial ACUITY: 1 day PAIN SCALE: 10/10 LOCATION: Bilateral abdomen TECHNIQUE: Volumetric scanning of the abdomen and pelvis was performed. Using automated exposure control and ad justment of the mA and/or kV according to patient size, radiation dose was kept as low as reasonably achievable to obtain optimal diagnostic quality images. DICOM format image data is available electro nically for review and comparison. FINDINGS: LOWER LUNGS: The visualized lower lungs are clear. LIVER: Homogeneous density without lesion. There is no dilation of the biliary tree. No calcified gallston es. SPLEEN: Normal size without lesion. PANCREAS: Within normal limits. KIDNEYS: Normal in size and shape. There is no mass, stone or hydronephrosis. ADRENAL GLANDS: Within normal limits. VASCULAR: There is no aortic aneurysm. BOWEL/MESENTERY: The stomach, small bowel, and colon demonstrate no acute abnormality. There is no free intraperitone al air or fluid. ABDOMINAL WALL: Within normal limits. RETROPERITONEUM: There is no lymphadenopathy. BLADDER: No wall thickening or mass. REPRODUCTIVE: Within normal limits. INGUINAL: There is no lymphadenopathy or hernia. MUSCULOSKELETAL: Within normal limits for patient age. CONCLUSION: Normal examination. Otoniel Valero MD on September 16, 2016 at 6:48 Board Certified Radiologist. This report was verified electronically.
[2016-09-16] MEDS ORDERED: ZOFR4TAB3 SL (07:22)
[2016-09-16] MEDS ORDERED: DICY10 PO (07:22)
[2016-09-16] MEDS ORDERED: DICYCLOMINE HCL 20 MG/2 ML VIAL IM ONE (07:30)
== END 2016-09-16 08:16 | disposition home or self-care (01) ==
LOC: NEPE 03:35
DX: R10.84 Generalized abdominal pain (principal); R11.0 Nausea; I10 Essential (primary) hypertension; F17.200 Nicotine dependence, unspecified, uncomplicated
CPT/HCPCS: 74177; 80053; 81001; 83690; 84703; 85025; 85652; 86140; 96361; 96372; 96374; 96375; 99285; J0500; J1885; J2270; J2405; J7040; Q9967

== ENCOUNTER 2016-09-21 13:17 | Emergency (ER) | payer SELFPAY ==
[~2016-09-21] VITALS: Ht 165.1 cm; Wt 79.5 kg
[~2016-09-21 13:17] MED LIST changes: +DICY10 PO; -LISI-515 PO
[2016-09-21 13:19] VITALS: BP 143/88; PULSE 110; RESP 24; TEMP 98.3; O2SAT 98
--- NOTE | 2016-09-21 13:34 | PD ---
HPI Chief Complaint: Abdominal Pain Time Seen by Provider: 13:32 Travel History International Travel<30 days: No Contact w/Intl Traveler<30days: No Traveled to known affect area: No History of Present Illness HPI 36 YO F presents to the ED for evaluation of 5 day history of 09/18 diffuse, constant abdominal pain, nausea and loose stools. Gradual onset. Nausea worsened by eating. No alleviating factors reported. Patient was seen in the Ed on 09/16, prescribed Bentyl and Zofran. She endorses compliance with these medications. She states that her belly feels bloated after the medications. The patient also complains that she just finished her period, but is now having heavy vaginal bleeding. She denies vaginal discharge or odor. Denies unprotected sex. Denies urinary symptoms. PFSH Past Medical History Cardiovascular Problems: Yes Diminished Hearing: No Hepatitis: No Hypertension: Yes Respiratory: No Immunizations Current: Yes LMP: 09/14/16 : 9 Para: 8 Miscarriage: 1 Past Surgical History Pacemaker: No Other Surgery: Yes (RIGHT WRIST LACERATION REPAIR) Social History Alcohol Use: No Tobacco Use: Yes (1/2 pack a day) Substance Use: No Allergies-Medications (Allergen,Severity, Reaction): Coded Allergies: No Known Allergies (Verified , 09/21/16) Reported Meds & Prescriptions Reported Meds & Active Scripts Active Flagyl (Metronidazole) 500 Mg Tab 500 Mg PO BID Doxycycline Hyclate 100 Mg Cap 100 Mg PO BID Reported Lisinopril 40 Mg Tab 40 Mg PO DAILY Review of Systems Except as stated in HPI: all other systems reviewed are Neg Physical Exam Narrative GENERAL: Well-nourished, well-developed nontoxic-appearing black female in no acute distress. SKIN: Focused skin assessment warm/dry. HEAD: Normocephalic. EYES: No scleral icterus. No injection or drainage. NECK: Supple, trachea midline. No JVD or lymphadenopathy. CARDIOVASCULAR: Regular rate and rhythm without murmurs, gallops, or rubs. RESPIRATORY: Breath sounds clear and equal bilaterally. No accessory muscle use. GASTROINTESTINAL: Abdomen soft, mildly distended, diffusely tender. No suprapubic tenderness. GENITOURINARY: Normal external genitalia without lesions or erythema. Vaginal vault without small amount of blood. No drainage. Cervical os was closed without drainage. Positive cervical motion tenderness. Uterus nontender and nonenlarged. Bilateral adnexa TENDER without masses. MUSCULOSKELETAL: No cyanosis, or edema. BACK: Nontender without obvious deformity. No CVA tenderness. Data Data Last Documented VS Vital Signs Date Time Temp Pulse Resp B/P Pulse Ox O2 Delivery O2 Flow Rate FiO2 09/21/16 14:59 16 09/21/16 13:48 99 Room Air 09/21/16 13:19 98.3 110 143/88 Orders Complete Blood Count With Diff (09/21/16 13:41) Comprehensive Metabolic Panel (09/21/16 13:41) Lipase (09/21/16 13:41) Lactic Acid (09/21/16 13:41) Prothrombin Time / Inr (Pt) (09/21/16 13:41) Act Partial Throm Time (Ptt) (09/21/16 13:41) Urinalysis - C+S If Indicated (09/21/16 13:41) Iv Access Insert/Monitor (09/21/16 13:41) Ecg Monitoring (09/21/16 13:41) Oximetry (09/21/16 13:41) Ondansetron Inj (Zofran Inj) (09/21/16 13:45) Sodium Chlor 0.9% 1000 Ml Inj (Ns 1000 M (09/21/16 13:41) Sodium Chloride 0.9% Flush (Ns Flush) (09/21/16 13:45) Ed Urine Pregnancytest Poc (09/21/16 13:41) Morphine Inj (Morphine Inj) (09/21/16 14:45) Gc And Chlamydia Pcr (09/21/16 14:59) Wet Prep Profile (09/21/16 14:59) Ceftriaxone Inj (Rocephin Inj) (09/21/16 15:15) Lidocaine 1% Inj (50 Ml) (Xylocaine 1% I (09/21/16 15:15) Doxycycline (Vibramycin) (09/21/16 15:15) Metronidazole (Flagyl) (09/21/16 15:15) Labs Laboratory Tests Test 09/21/16 09/21/16 09/21/16 13:50 14:30 14:35 White Blood Count 12.1 TH/MM3 Red Blood Count 4.75 MIL/MM3 Hemoglobin 14.6 GM/DL Hematocrit 44.4 % Mean Corpuscular Volume 93.4 FL Mean Corpuscular Hemoglobin 30.7 PG Mean Corpuscular Hemoglobin 32.9 % Concent Red Cell Distribution Width 13.7 % Platelet Count 343 TH/MM3 Mean Platelet Volume 7.9 FL Neutrophils (%) (Auto) 74.5 % Lymphocytes (%) (Auto) 11.1 % Monocytes (%) (Auto) 13.4 % Eosinophils (%) (Auto) 0.8 % Basophils (%) (Auto) 0.2 % Neutrophils # (Auto) 9.0 TH/MM3 Lymphocytes # (Auto) 1.3 TH/MM3 Monocytes # (Auto) 1.6 TH/MM3 Eosinophils # (Auto) 0.1 TH/MM3 Basophils # (Auto) 0.0 TH/MM3 CBC Comment AUTO DIFF Differential Total Cells 100 Counted Neutrophils % (Manual) 73 % Band Neutrophils % 2 % Lymphocytes % 12 % Monocytes % 12 % Neutrophils # (Manual) 9.2 TH/MM3 Metamyelocytes 1 % Differential Comment FINAL DIFF MANUAL Platelet Estimate NORMAL Platelet Morphology Comment NORMAL Prothrombin Time 10.7 SEC Prothromb Time International 1.0 RATIO Ratio Activated Partial 25.2 SEC Thromboplast Time Sodium Level 134 MEQ/L Potassium Level 3.3 MEQ/L Chloride Level 100 MEQ/L Carbon Dioxide Level 26.0 MEQ/L Anion Gap 8 MEQ/L Blood Urea Nitrogen 16 MG/DL Creatinine 0.96 MG/DL Estimat Glomerular Filtration 79 ML/MIN Rate Random Glucose 93 MG/DL Lactic Acid Level 1.0 mmol/L Calcium Level 8.9 MG/DL Total Bilirubin 0.6 MG/DL Aspartate Amino Transf 16 U/L (AST/SGOT) Alanine Aminotransferase 24 U/L (ALT/SGPT) Alkaline Phosphatase 119 U/L Total Protein 7.4 GM/DL Albumin 2.7 GM/DL Lipase 133 U/L Clue Cells (Wet Prep) NONE SEEN Vaginal Trichomonas (Wet Prep) NONE SEEN Vaginal Yeast (Wet Prep) NONE SEEN Urine Color YELLOW Urine Turbidity CLEAR Urine pH 6.5 Urine Specific [place] 1.025 Urine Protein 30 mg/dL Urine Glucose (UA) NEG mg/dL Urine Ketones TRACE mg/dL Urine Occult Blood SMALL Urine Nitrite NEG Urine Bilirubin NEG Urine Urobilinogen LESS THAN 2.0 MG/DL Urine Leukocyte Esterase TRACE Urine RBC 2 /hpf Urine WBC 2 /hpf Urine Squamous Epithelial 1 /hpf Cells Microscopic Urinalysis Comment CULT NOT INDICATED MDM Medical Decision Making Medical Screen Exam Complete: Yes Emergency Medical Condition: Yes Differential Diagnosis PID versus STD versus UA versus versus other Narrative Course 36 YO F presents to the ED for evaluation of 5 day history of 09/18 diffuse, constant abdominal pain, nausea and loose stools. Gradual onset. Nausea worsened by eating. No alleviating factors reported. The patient also complains that she just finished her period, but is now having heavy vaginal bleeding. She denies vaginal discharge or odor. Denies unprotected sex. Denies urinary symptoms. Vitals reviewed. Physical exam reveals a nontoxic-appearing white female in no acute distress. Belly is mildly protuberant and diffusely tender. Pelvic exam reveals scant amount of blood in the vaginal vault with positive cervical motion tenderness and bilateral adnexal tenderness. Patient was administered 1 L normal saline, 4 mg Zofran and 4 mg morphine IV. ED urine test negative. Review the patient's record reveals that she had an abdominal pain workup including negative CT on 09/16. No concerning abnormalities on CBC, CMP, UA, serology. GC and chlamydia pending. Given the patient's cervical motion tenderness I suspect PID. She was administered IM ceftriaxone, by mouth Doxy and Flagyl. She is prescribed doxycycline 100 mg twice a day 14 days and Flagyl 500 mg twice a day 14 days. She is instructed to take all the medication as prescribed, follow up with the [facility] for further evaluation. She indicated understanding of instructions and is agreeable to the care plan. She is stable and discharged home. Diagnosis Primary Impression: Cervical motion tenderness Additional Impression: Lower abdominal pain Referrals: [employer] Super[facility] Maintenance Patient Instructions: General Instructions, Pelvic Inflammatory Disease (ED) Additional Instructions: Rest, hydrate. Returned normal, gentle activities as tolerated. Take all antibiotics as prescribed, even if your symptoms resolved. Follow-up with the health department for full STD screening. Follow-up with the cereal maker for further evaluation of pelvic pain. Return to the ED for any urgent or emergent medical condition. Scripts Metronidazole (Flagyl)500 Mg [id number] Mg PO BID #28 TAB Ref 0 Prov:Parris Mitchell MD 09/21/16 Doxycycline Hyclate 100 Mg [id number] Mg PO BID #28 CAP Ref 0 Prov:Parris Mitchell MD 09/21/16 Disposition: DISCHARGE HOME Condition: Stable Anna Contreras Sep 21, 2016 13:34
[2016-09-21] MEDS ORDERED: LISI40TA PO (13:35)
[2016-09-21] MEDS ORDERED: SODIUM CHLOR 0.9% 1000 ML INJ 1,000 ML IV SCH (13:41)
[2016-09-21] MEDS ORDERED: SODIUM CHLORIDE 0.9% FLUSH 10 ML FLUSH IV FLUSH PRN (13:45)
[2016-09-21] MEDS ORDERED: ONDANSETRON HCL 4 MG/2 ML VIAL IVP ONE (13:45)
[2016-09-21 13:48] VITALS: RESP 18; O2SAT 99
[2016-09-21 14:21] LABS: BASOPHIL % 0.2 % (0.0-2.0); EOSINOPHIL # 0.1 TH/MM3 (0-0.4); EOSINOPHIL % 0.8 % (0.0-4.0); HEMATOCRIT 44.4 % (35.0-46.0); LYMPH % 11.1 % (9.0-44.0); LYMPHOCYTE # 1.3 TH/MM3 (1.0-4.8); MEAN CELL VOLUME 93.4 FL (80.0-100.0); MEAN CORPUSCULAR HEMOGLOBIN 30.7 PG (27.0-34.0); MEAN CORPUSCULAR HGB CONC 32.9 % (32.0-36.0); MONO % 13.4 % (0.0-8.0); NEUT % 74.5 % (16.0-70.0); PLATELET COUNT 343 TH/MM3 (150-450); RED BLOOD COUNT 4.75 MIL/MM3 (4.00-5.30); RED CELL DISTRIBUTION WIDTH 13.7 % (11.6-17.2); WHITE BLOOD COUNT 12.1 TH/MM3 (4.0-11.0)
[2016-09-21 14:39] LABS: HEMO FLAGS AUTO DIFF
[2016-09-21 14:45] LABS: ALT (GPT) 24 U/L (10-53); ANION GAP 8 MEQ/L (5-15); AST (GOT) 16 U/L (15-37); BLOOD UREA NITROGEN 16 MG/DL (7-18); CHLORIDE 100 MEQ/L (98-107); GLOMERULAR FILTRATION RATE 79 ML/MIN (>89); POTASSIUM 3.3 MEQ/L (3.5-5.1); SODIUM (NA) 134 MEQ/L (136-145)
[2016-09-21] MEDS ORDERED: MORPHINE SULFATE 4 MG/ML INJ IV PUSH ONE (14:45)
[2016-09-21 14:48] LABS: ALKALINE PHOSPHATASE 119 U/L (45-117); TOTAL BILIRUBIN ADULT 0.6 MG/DL (0.2-1.0)
[2016-09-21 14:59] VITALS: RESP 16
[2016-09-21 15:00] LABS: APTT (PATIENT) 25.2 SEC (24.3-30.1); PROTHROMBIN TIME - PATIENT 10.7 SEC (9.8-11.6)
[2016-09-21] MEDS ORDERED: cefTRIAXone 250 MG VIAL IM ONE (15:15)
[2016-09-21] MEDS ORDERED: metroNIDAZOLE 500 MG TAB PO ONE (15:15)
[2016-09-21] MEDS ORDERED: LIDOCAINE HCL 1% 50 ML VIAL IM ONE (15:15)
[2016-09-21] MEDS ORDERED: DOXYCYCLINE HYCLATE 100 MG CAP PO ONE (15:15)
[2016-09-21 15:22] LABS: BANDS 2 % (0-6); METAMYELOCYTES 1 % (0-1); NEUTROPHIL # MANUAL DIFF 9.2 TH/MM3 (1.8-7.7); PLATELET ESTIMATE SMEAR NORMAL (NORMAL); PLATELET MORPHOLOGY NORMAL (NORMAL); POLYS (SEG NEUTROPHILS) 73 % (16-70); SCAN/DIFF FINAL DIFF MANUAL; WBC DIFF SAMPLE 100
[2016-09-21 15:28] LABS: BLOOD, URINE SMALL (NEG); COMMENT (UR) CULT NOT INDICATED; CULTURE IF INDICATED CULT NOT INDICATED; GLUCOSE,URINE NEG (NEG); KETONE, URINE TRACE mg/dL (NEG); NITRITE,URINE NEG (NEG); PH, URINE 6.5 (5.0-8.5); SQUAMOUS EPITHELIAL CELL URINE 1 /hpf (0-5); URINE COLOR YELLOW (YELLW/STRAW)
[2016-09-21] MEDS ORDERED: METR-1 PO (15:35)
[2016-09-21] MEDS ORDERED: DOXY100C PO (15:35)
[2016-09-21 16:03] VITALS: BP 128/77; TEMP 97.8
[2016-09-21 17:09] LABS: CHLAMYDIA PCR NOT DETECTED (NOT DETECT); NEISSERIA PCR DETECTED (NOT DETECT)
== END 2016-09-21 16:04 | disposition home or self-care (01) ==
LOC: NEPC 13:17
DX: R10.30 Lower abdominal pain, unspecified (principal); R11.0 Nausea
CPT/HCPCS: 80053; 81001; 83605; 83690; 84703; 85007; 85027; 85610; 85730; 87210; 87491; 87591; 96361; 96372; 96374; 96375; 99284; J0696; J2270; J2405; J7030

== ENCOUNTER 2016-10-23 13:32 | Emergency (ER) | payer SELFPAY ==
[~2016-10-23] VITALS: Ht 165.1 cm; Wt 75.0 kg
[~2016-10-23 13:32] MED LIST changes: -DICY10 PO; +DOXY100C PO; +LISI40TA PO; +METR-1 PO; -ZOFR4TAB3 SL
[2016-10-23 13:34] VITALS: BP 162/100; PULSE 86; RESP 20; TEMP 98.8; O2SAT 99
[2016-10-23 14:20] LABS: BACTERIA, URINE OCC /hpf; BLOOD, URINE MOD (NEG); COMMENT (UR) CULT NOT INDICATED; CULTURE IF INDICATED CULT NOT INDICATED; GLUCOSE,URINE NEG (NEG); KETONE, URINE NEG (NEG); NITRITE,URINE NEG (NEG); SQUAMOUS EPITHELIAL CELL URINE 1 /hpf (0-5); URINE COLOR YELLOW (YELLW/STRAW)
[2016-10-23] MEDS ORDERED: METR-1 PO (14:39)
[2016-10-23] MEDS ORDERED: DOXY100C PO (14:39)
--- NOTE | 2016-10-23 14:39 | PD ---
HPI Chief Complaint: Complaint Time Seen by Provider: 14:13 Travel History International Travel<30 days: No Contact w/Intl Traveler<30days: No Traveled to known affect area: No History of Present Illness HPI 36-year-old female came to the emergency room because she got a letter to come in to be treated for gonorrhea. Patient was in the emergency room one month ago when she was tested positive for gonorrhea. However patient did get treated at that time completely with Rocephin IM, doxycycline and Flagyl. But patient says that she had unprotected sex 4 days after that with her and he was not treated. She she is having discharge and lower abdominal pain. [facility] Past Medical History Narrative Medical List of her past medical, surgical, social and family history is reviewed from the nursing note. Cardiovascular Problems: Yes Diminished Hearing: No Hepatitis: No Hypertension: Yes Medical other: Yes (ARTHRITIS LOW SPINE) Respiratory: No Immunizations Current: Yes ?: Unknown LMP: 10/18/2016 : 9 Para: 8 Miscarriage: 1 Past Surgical History Pacemaker: No Other Surgery: Yes (RIGHT WRIST LACERATION REPAIR) Social History Alcohol Use: No Tobacco Use: Yes (1/2 pack a day) Substance Use: No (pt denies) Allergies-Medications (Allergen,Severity, Reaction): Coded Allergies: No Known Allergies (Verified , 10/23/16) Comments No known drug allergies. Reported Meds & Prescriptions Reported Meds & Active Scripts Active Doxycycline Hyclate 100 Mg Cap 100 Mg PO BID Flagyl (Metronidazole) 500 Mg Tab 500 Mg PO BID Reported Lisinopril 40 Mg Tab 40 Mg PO DAILY Narrative Medication List of her home medications reviewed from the nursing note. Review of Systems Except as stated in HPI: all other systems reviewed are Neg Physical Exam Narrative GENERAL: Awake, alert, no obvious distress SKIN: Focused skin assessment warm/dry. HEAD: Atraumatic. Normocephalic. EYES: Pupils equal and round. No scleral icterus. No injection or drainage. ENT: No nasal bleeding or discharge. Mucous membranes pink and moist. NECK: Trachea midline. No JVD. CARDIOVASCULAR: Regular rate and rhythm. No murmur appreciated. RESPIRATORY: No accessory muscle use. Clear to auscultation. Breath sounds equal bilaterally. GASTROINTESTINAL: Abdomen soft, non-tender, nondistended. Hepatic and splenic margins not palpable. MUSCULOSKELETAL: No obvious deformities. No clubbing. No cyanosis. No edema. NEUROLOGICAL: Awake and alert. No obvious cranial nerve deficits. Motor grossly within normal limits. Normal speech. PSYCHIATRIC: Appropriate mood and affect; insight and judgment normal. Data Data Last Documented VS Vital Signs Date Time Temp Pulse Resp B/P (MAP) Pulse Ox O2 Delivery O2 Flow Rate FiO2 10/23/16 15:00 10/23/16 14:09 18 10/23/16 13:34 98.8 86 99 Room Air Orders Orders Urinalysis - C+S If Indicated (10/23/16 13:38) Ed Urine Pregnancytest Poc (10/23/16 13:38) Doxycycline (Vibratab) (10/23/16 14:45) Metronidazole (Flagyl) (10/23/16 14:45) Ceftriaxone Inj (Rocephin Inj) (10/23/16 14:45) Labs Laboratory Tests Test 10/23/16 13:43 10/24/16 19:38 Urine Color YELLOW Urine Turbidity CLEAR Urine pH 7.0 Urine Specific [place] 1.012 Urine Protein NEG mg/dL Urine Glucose (UA) NEG mg/dL Urine Ketones NEG mg/dL Urine Occult Blood MOD Urine Nitrite NEG Urine Bilirubin NEG Urine Urobilinogen LESS THAN 2.0 MG/DL Urine Leukocyte Esterase TRACE Urine RBC /hpf Urine WBC 3 /hpf Urine Squamous Epithelial Cells 1 /hpf Urine Bacteria OCC /hpf Microscopic Urinalysis Comment CULT NOT INDICATED Lab Scanned Report Lab Reports - Other [id number] [facility] Medical Decision Making Medical Screen Exam Complete: Yes Emergency Medical Condition: Yes Medical Record Reviewed: Yes Differential Diagnosis Recurrent PID Narrative Course 2:42 PM UA was negative. Given the fact that patient probably contracted GC again I decided to go ahead and treat her again without conducting any more pelvic exam. She was tested positive for GC last time time. She has been strongly recommended by me this time to get her treated as well as not to have unprotected sex for next 3 weeks following the treatment. Procedures EKG Prior to Arrival: No Diagnosis Primary Impression: Pelvic inflammatory disease (PID) Referrals: Primary Care Physician Additional Instructions: Your partner needs to be treated for gonorrhea and Chlamydia both. Do not have unprotected sex for next 3 weeks. Follow-up with your primary care. Take the medication as per the prescription direction. Med/Other Pt SpecificInfo: Prescription(s) given Scripts Doxycycline Hyclate (Doxycycline Hyclate) 100 Mg Cap 100 MG PO BID for Infection, #28 CAP 0 Refills Prov: Rehan Galvan MD 10/23/16 Metronidazole (Flagyl) 500 Mg Tab 500 MG PO BID for Infection, #28 TAB 0 Refills Prov: Rehan Galvan MD 10/23/16 Disposition: 01 DISCHARGE HOME Condition: Stable Rehan Galvan MD Oct 23, 2016 14:39
[2016-10-23] MEDS ORDERED: metroNIDAZOLE 500 MG TAB PO ONE (14:45)
[2016-10-23] MEDS ORDERED: DOXYCYCLINE HYCLATE 100 MG TAB PO ONE (14:45)
[2016-10-23] MEDS ORDERED: cefTRIAXone 250 MG VIAL IM ONE (14:45)
== END 2016-10-23 15:00 | disposition home or self-care (01) ==
LOC: NEPD 13:32
DX: N73.9 Female pelvic inflammatory disease, unspecified (principal); I10 Essential (primary) hypertension; M13.88 Other specified arthritis, other site; F17.200 Nicotine dependence, unspecified, uncomplicated
CPT/HCPCS: 81001; 84703; 96372; 99284; J0696

== ENCOUNTER 2017-03-07 15:25 | Emergency (ER) | payer SELFPAY ==
[~2017-03-07] VITALS: Ht 167.6 cm; Wt 81.5 kg
[2017-03-07 15:26] VITALS: BP 156/94; PULSE 82; RESP 14; TEMP 98.5; O2SAT 98
[2017-03-07] MEDS ORDERED: LISINOPRIL 20 MG TAB PO ONE (16:15)
[2017-03-07 16:31] LABS: AUTOMATED NEUTROPHIL # 8.5 TH/MM3 (1.8-7.7); BASOPHIL # 0.1 TH/MM3 (0-0.2); BASOPHIL % 0.5 % (0.0-2.0); EOSINOPHIL # 0.1 TH/MM3 (0-0.4); EOSINOPHIL % 0.8 % (0.0-4.0); HEMATOCRIT 39.3 % (35.0-46.0); HEMOGLOBIN 13.2 GM/DL (11.6-15.3); LYMPH % 15.6 % (9.0-44.0); LYMPHOCYTE # 1.7 TH/MM3 (1.0-4.8); MEAN CORPUSCULAR HEMOGLOBIN 30.2 PG (27.0-34.0); MEAN CORPUSCULAR HGB CONC 33.6 % (32.0-36.0); MONO % 6.1 % (0.0-8.0); MONOCYTE # 0.7 TH/MM3 (0-0.9); PLATELET COUNT 433 TH/MM3 (150-450); RED BLOOD COUNT 4.37 MIL/MM3 (4.00-5.30)
--- NOTE | 2017-03-07 16:31 | PD ---
HPI . Anxiety Chief Complaint: Psychiatric Symptoms Time Seen by Provider: 16:01 Travel History International Travel<30 days: No Contact w/Intl Traveler<30days: No Traveled to known affect area: No History of Present Illness HPI This patient presents with a chief complaint of chronic anxiety. She states that she presents today because it is getting progressively worse. She states that she is now to the point where she is hearing voices. She states that she has never been treated for her anxiety. She reports a sensation of everything closing in on her. She denies homicidal or suicidal ideation. In addition, the patient reports a history of hypertension. She states that she has not been on any medication for months because she does not have a doctor to prescribe her medication. She states that she has previously been treated with lisinopril. PFSH Past Medical History Cardiovascular Problems: Yes Diminished Hearing: No Hepatitis: No Hypertension: Yes Medical other: Yes (ARTHRITIS LOW SPINE) Respiratory: No Immunizations Current: Yes Tetanus Vaccination: < 5 Years ?: Not LMP: Jan : 9 Para: 8 Miscarriage: 1 Past Surgical History Pacemaker: No Other Surgery: Yes (RIGHT WRIST LACERATION REPAIR) Social History Alcohol Use: No Tobacco Use: Yes (1/2 pack a day) Substance Use: No (pt denies) Allergies-Medications (Allergen,Severity, Reaction): Coded Allergies: No Known Allergies (Verified , 10/23/16) Reported Meds & Prescriptions Reported Meds & Active Scripts Active Doxycycline Hyclate 100 Mg Cap 100 Mg PO BID Flagyl (Metronidazole) 500 Mg Tab 500 Mg PO BID Reported Lisinopril 40 Mg Tab 40 Mg PO DAILY Review of Systems Except as stated in HPI: all other systems reviewed are Neg Psychiatric: Positive: Anxiety, Depression, Disorder of Thought, No: Suicidal Ideations, Substance Abuse, Homicidal Ideation Physical Exam Narrative GENERAL: Awake and alert. Tearful. SKIN: Warm and dry. Good color and turgor. HEAD: Normocephalic/atraumatic. EYES: Pupils are equal. Extraocular movements are intact. NECK: Normal range of motion. CARDIOVASCULAR: Regular rate and rhythm. RESPIRATORY: Nonlabored respirations. MUSCULOSKELETAL: Atraumatic. NEUROLOGICAL: Nonfocal. PSYCHIATRIC: Anxious and tearful. She makes good eye contact with the examiner. She does not appear to be responding to any internal stimuli. Data Data Last Documented VS Vital Signs Date Time Temp Pulse Resp B/P (MAP) Pulse Ox O2 Delivery O2 Flow Rate FiO2 03/07/17 21:30 69 20 136/85 (102) 100 03/07/17 15:26 98.5 Orders Orders Complete Blood Count With Diff (03/07/17 16:04) Comprehensive Metabolic Panel (03/07/17 16:04) Thyroid Stimulating Hormone (03/07/17 16:04) Psych Screen (03/07/17 16:04) Drug Screen, Random Urine (03/07/17 16:04) Alcohol (Ethanol) (03/07/17 16:04) Lisinopril (Prinivil) (03/07/17 16:15) Ed Discharge Order (03/07/17 21:16) Labs Laboratory Tests Test 03/07/17 16:00 White Blood Count 11.0 TH/MM3 Red Blood Count 4.37 MIL/MM3 Hemoglobin 13.2 GM/DL Hematocrit 39.3 % Mean Corpuscular Volume 90.0 FL Mean Corpuscular Hemoglobin 30.2 PG Mean Corpuscular Hemoglobin Concent 33.6 % Red Cell Distribution Width 14.0 % Platelet Count 433 TH/MM3 Mean Platelet Volume 7.0 FL Neutrophils (%) (Auto) 77.0 % Lymphocytes (%) (Auto) 15.6 % Monocytes (%) (Auto) 6.1 % Eosinophils (%) (Auto) 0.8 % Basophils (%) (Auto) 0.5 % Neutrophils # (Auto) 8.5 TH/MM3 Lymphocytes # (Auto) 1.7 TH/MM3 Monocytes # (Auto) 0.7 TH/MM3 Eosinophils # (Auto) 0.1 TH/MM3 Basophils # (Auto) 0.1 TH/MM3 CBC Comment DIFF FINAL Differential Comment Blood Urea Nitrogen 15 MG/DL Creatinine 0.79 MG/DL Random Glucose 84 MG/DL Total Protein 7.5 GM/DL Albumin 3.8 GM/DL Calcium Level 9.1 MG/DL Alkaline Phosphatase 124 U/L Aspartate Amino Transf (AST/SGOT) 12 U/L Alanine Aminotransferase (ALT/SGPT) 25 U/L Total Bilirubin 0.3 MG/DL Sodium Level 138 MEQ/L Potassium Level 4.0 MEQ/L Chloride Level 106 MEQ/L Carbon Dioxide Level 25.1 MEQ/L Anion Gap 7 MEQ/L Estimat Glomerular Filtration Rate 99 ML/MIN Thyroid Stimulating Hormone 3rd Gen 0.509 uIU/ML Urine Opiates Screen NEG Urine Barbiturates Screen NEG Urine Amphetamines Screen NEG Urine Benzodiazepines Screen NEG Urine Cocaine Screen NEG Urine Cannabinoids Screen NEG Ethyl Alcohol Level LESS THAN 3 MG/DL MDM Medical Decision Making Medical Screen Exam Complete: Yes Emergency Medical Condition: Yes Differential Diagnosis Differential diagnosis of psychosis includes but is not limited to schizophrenia , schizoaffective disorder, bipolar disorder, intoxication, substance abuse, dementia Narrative Course This patient presents with the chief complaint of anxiety. She reports auditory hallucinations. I have initiated a psychiatric medical clearance exam. I have ordered her lisinopril for hypertension. At this point, she is a voluntary psychiatric patient. Diagnosis Primary Impression: Anxiety Additional Impression: Hypertension Qualified Codes: I10 - Essential (primary) hypertension Condition: Stable Navya Carlisle MD Mar 07, 2017 16:31
[2017-03-07 16:44] LABS: ALBUMIN 3.8 GM/DL (3.4-5.0); AST (GOT) 12 U/L (15-37); BICARBONATE 25.1 MEQ/L (21.0-32.0); BLOOD UREA NITROGEN 15 MG/DL (7-18); CALCIUM 9.1 MG/DL (8.5-10.1); CHLORIDE 106 MEQ/L (98-107); CREATININE 0.79 MG/DL (0.50-1.00); GLOMERULAR FILTRATION RATE 99 ML/MIN (>89); GLUCOSE,RANDOM 84 MG/DL (74-106); SODIUM (NA) 138 MEQ/L (136-145)
[2017-03-07 16:45] LABS: ALT (GPT) 25 U/L (10-53)
[2017-03-07 16:55] LABS: ALKALINE PHOSPHATASE 124 U/L (45-117); TOTAL BILIRUBIN ADULT 0.3 MG/DL (0.2-1.0); TOTAL PROTEIN 7.5 GM/DL (6.4-8.2)
--- NOTE | 2017-03-07 17:23 | PD ---
Physical Exam Date Seen by Provider: Mar 07, 2017 Time Seen by Provider: 17:22 Narrative I resumed care from Dr. Carlisle awaiting lab results. Patient is here voluntarily for psychiatric evaluation. Data Data Last Documented VS Vital Signs Date Time Temp Pulse Resp B/P (MAP) Pulse Ox O2 Delivery O2 Flow Rate FiO2 03/07/17 15:26 98.5 82 14 156/94 (114) 98 Orders Orders Complete Blood Count With Diff (03/07/17 16:04) Comprehensive Metabolic Panel (03/07/17 16:04) Thyroid Stimulating Hormone (03/07/17 16:04) Psych Screen (03/07/17 16:04) Drug Screen, Random Urine (03/07/17 16:04) Alcohol (Ethanol) (03/07/17 16:04) Lisinopril (Prinivil) (03/07/17 16:15) Labs Laboratory Tests Test 03/07/17 16:00 White Blood Count 11.0 TH/MM3 Red Blood Count 4.37 MIL/MM3 Hemoglobin 13.2 GM/DL Hematocrit 39.3 % Mean Corpuscular Volume 90.0 FL Mean Corpuscular Hemoglobin 30.2 PG Mean Corpuscular Hemoglobin Concent 33.6 % Red Cell Distribution Width 14.0 % Platelet Count 433 TH/MM3 Mean Platelet Volume 7.0 FL Neutrophils (%) (Auto) 77.0 % Lymphocytes (%) (Auto) 15.6 % Monocytes (%) (Auto) 6.1 % Eosinophils (%) (Auto) 0.8 % Basophils (%) (Auto) 0.5 % Neutrophils # (Auto) 8.5 TH/MM3 Lymphocytes # (Auto) 1.7 TH/MM3 Monocytes # (Auto) 0.7 TH/MM3 Eosinophils # (Auto) 0.1 TH/MM3 Basophils # (Auto) 0.1 TH/MM3 CBC Comment DIFF FINAL Differential Comment Blood Urea Nitrogen 15 MG/DL Creatinine 0.79 MG/DL Random Glucose 84 MG/DL Total Protein 7.5 GM/DL Albumin 3.8 GM/DL Calcium Level 9.1 MG/DL Alkaline Phosphatase 124 U/L Aspartate Amino Transf (AST/SGOT) 12 U/L Alanine Aminotransferase (ALT/SGPT) 25 U/L Total Bilirubin 0.3 MG/DL Sodium Level 138 MEQ/L Potassium Level 4.0 MEQ/L Chloride Level 106 MEQ/L Carbon Dioxide Level 25.1 MEQ/L Anion Gap 7 MEQ/L Estimat Glomerular Filtration Rate 99 ML/MIN Thyroid Stimulating Hormone 3rd Gen 0.509 uIU/ML Urine Opiates Screen NEG Urine Barbiturates Screen NEG Urine Amphetamines Screen NEG Urine Benzodiazepines Screen NEG Urine Cocaine Screen NEG Urine Cannabinoids Screen NEG Ethyl Alcohol Level LESS THAN 3 MG/DL [facility] Supervised Visit with TIP: No Narrative Course 36-year-old female presents to the emergency Department voluntarily for psychiatric evaluation. I resumed care from Dr. Carlisle, awaiting laboratory results. CBC shows no acute abnormality. CMP shows no acute abnormality. Urine drug screen is negative. Alcohol level is less than 3. Patient is medically cleared for psychiatric screening and disposition. Mental health screening discussed with the patient. Psychiatric screen ordered. Diagnosis Primary Impression: Anxiety Additional Impression: Hypertension Qualified Codes: I10 - Essential (primary) hypertension Condition: Stable Nadeem,Patricia GAINES Mar 07, 2017 17:23
--- NOTE | 2017-03-07 21:20 | PD ---
Physical Exam Date Seen by Provider: Mar 07, 2017 Time Seen by Provider: 21:17 Data Data Last Documented VS Vital Signs Date Time Temp Pulse Resp B/P (MAP) Pulse Ox O2 Delivery O2 Flow Rate FiO2 03/07/17 15:26 98.5 82 14 156/94 (114) 98 Orders Orders Complete Blood Count With Diff (03/07/17 16:04) Comprehensive Metabolic Panel (03/07/17 16:04) Thyroid Stimulating Hormone (03/07/17 16:04) Psych Screen (03/07/17 16:04) Drug Screen, Random Urine (03/07/17 16:04) Alcohol (Ethanol) (03/07/17 16:04) Lisinopril (Prinivil) (03/07/17 16:15) Ed Discharge Order (03/07/17 21:16) Labs Laboratory Tests Test 03/07/17 16:00 White Blood Count 11.0 TH/MM3 Red Blood Count 4.37 MIL/MM3 Hemoglobin 13.2 GM/DL Hematocrit 39.3 % Mean Corpuscular Volume 90.0 FL Mean Corpuscular Hemoglobin 30.2 PG Mean Corpuscular Hemoglobin Concent 33.6 % Red Cell Distribution Width 14.0 % Platelet Count 433 TH/MM3 Mean Platelet Volume 7.0 FL Neutrophils (%) (Auto) 77.0 % Lymphocytes (%) (Auto) 15.6 % Monocytes (%) (Auto) 6.1 % Eosinophils (%) (Auto) 0.8 % Basophils (%) (Auto) 0.5 % Neutrophils # (Auto) 8.5 TH/MM3 Lymphocytes # (Auto) 1.7 TH/MM3 Monocytes # (Auto) 0.7 TH/MM3 Eosinophils # (Auto) 0.1 TH/MM3 Basophils # (Auto) 0.1 TH/MM3 CBC Comment DIFF FINAL Differential Comment Blood Urea Nitrogen 15 MG/DL Creatinine 0.79 MG/DL Random Glucose 84 MG/DL Total Protein 7.5 GM/DL Albumin 3.8 GM/DL Calcium Level 9.1 MG/DL Alkaline Phosphatase 124 U/L Aspartate Amino Transf (AST/SGOT) 12 U/L Alanine Aminotransferase (ALT/SGPT) 25 U/L Total Bilirubin 0.3 MG/DL Sodium Level 138 MEQ/L Potassium Level 4.0 MEQ/L Chloride Level 106 MEQ/L Carbon Dioxide Level 25.1 MEQ/L Anion Gap 7 MEQ/L Estimat Glomerular Filtration Rate 99 ML/MIN Thyroid Stimulating Hormone 3rd Gen 0.509 uIU/ML Urine Opiates Screen NEG Urine Barbiturates Screen NEG Urine Amphetamines Screen NEG Urine Benzodiazepines Screen NEG Urine Cocaine Screen NEG Urine Cannabinoids Screen NEG Ethyl Alcohol Level LESS THAN 3 MG/DL MDM Medical Record Reviewed: Yes Supervised Visit with TIP: Yes Differential Diagnosis MDM: High Differential diagnoses: Schizophrenia, schizoaffective disorder, bipolar, anxiety, depression, adjustment reaction, mood disorder NOS, ODD, depressive disorder NOS, dementia, dementia with agitation, psychosis NOS, substance induced mood disorder, DMDD, Asperger syndrome, infection,electrolyte abnormality, malingering. Narrative Course This is a patient who had been seen or earlier by . The patient was waiting for psych to evaluate. She states that she no longer wants to wait. She denies suicidal homicidal ideation. She feels comfortable going home. Her family member feels comfortable taking her home. The patient has agreed to follow-up as an outpatient at [facility] in the morning. She is also advised to follow-up with [facility] for blood pressure treatment This is anxiety, hypertension Diagnosis Primary Impression: Anxiety Additional Impression: Hypertension Qualified Codes: I10 - Essential (primary) hypertension Patient Instructions: General Instructions Departure Forms: Tests/Procedures Disposition: DISCHARGE HOME Condition: Stable Gregorio Clark Mar 07, 2017 21:20
[2017-03-07 21:30] VITALS: BP 136/85
== END 2017-03-07 21:51 | disposition home or self-care (01) ==
LOC: NEPD 15:25
DX: F41.9 Anxiety disorder, unspecified (principal); I10 Essential (primary) hypertension; F17.200 Nicotine dependence, unspecified, uncomplicated; Z79.899 Other long term (current) drug therapy
CPT/HCPCS: 80053; 80307; 84443; 85025; 99283